=== PATIENT | female | born 1995 | race Hispanic/Latino ===

== ENCOUNTER 2019-07-15 20:36 | Emergency (ER) | payer OTHER ==
[~2019-07-15] VITALS: Ht 170.2 cm; Wt 59.0 kg
--- NOTE | 2019-07-15 22:53 | Diagnostic Imaging Report ---
EXAMINATION: CHEST 2 VIEWS INDICATION: ^CHEST PAIN ^[id number] ^[id number] COMPARISON: None FINDINGS: TUBES and LINES: None. LUNGS: Lungs are well inflated. Slight perihilar, peribronchial thickening and perihilar streaky densities may reflect viral infection versus reactive airway disease. There is no evidence of pneumonia or pulmonary edema. PLEURA: No pleural effusion or pneumothorax. HEART AND MEDIASTINUM: The cardiomediastinal silhouette is unremarkable. BONES AND SOFT TISSUES: No acute osseous lesion. Soft tissues are unremarkable. UPPER ABDOMEN: No free air under the diaphragm. IMPRESSION: Slight perihilar, peribronchial thickening and perihilar streaky densities may reflect viral infection versus reactive airway disease Signed by: Dr. Sarah Degroot M.D. on 07/15/2019 10:50 PM
== END 2019-07-15 23:30 | disposition home or self-care (01) ==
LOC: ER 20:36
DX: R07.9 Chest pain, unspecified (principal)
CPT/HCPCS: 71046; 93005; 99283

== ENCOUNTER 2019-10-23 16:54 | Emergency (ER) | payer SELFPAY ==
[~2019-10-23] VITALS: Ht 172.7 cm; Wt 59.0 kg
[2019-10-23] MEDS ORDERED: IBUPROFEN 600 MG TAB PO STA (17:20)
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
--- NOTE | 2019-10-23 18:26 | Diagnostic Imaging Report ---
SHOULDER 2+VW LT -HOPD - Multiple views HISTORY: pain COMPARISON: None available. FINDINGS: There is a mildly displaced fracture of the lateral clavicular shaft with slight widening of a chronic clavicular joint could represent ligamentous injury. Osseous alignment is within normal limits. There is no evidence of dislocation. Mild soft tissue swelling about the fracture site. IMPRESSION: Mildly displaced fracture of the lateral clavicular shaft with slight widening of a chronic clavicular joint could represent ligamentous injury. Signed by: Beltran Ríos MD on 10/23/2019 6:23 PM
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
--- NOTE | 2019-10-23 20:14 | NUR ---
CALLED [facility]. SPOKE WITH LIAT. SHE WILL CALL BACK WITH NEUROLOGIST FOR MD/MD REPORT.
--- NOTE | 2019-10-23 20:40 | NUR ---
DOC TO DOC WITH DR BENSON ACCEPTING PT
[2019-10-23] MEDS ORDERED: IBUPROFEN 600 MG TAB ONE (22:34)
--- NOTE | 2019-10-23 23:20 | NUR ---
REC'D CALL FROM [facility], ETA WILL BE ANOTHER 1 1/2HRS. PT REQUESTING WE CALL ANOTHER EMS
--- NOTE | 2019-10-23 23:30 | NUR ---
CALLED [facility]. ETA 20MINS.
--- NOTE | 2019-10-23 23:34 | NUR ---
CALLED [facility] AT PT REQUEST. ETA 20MINS
--- NOTE | 2019-10-24 00:03 | NUR ---
REPORT TO [facility].
--- NOTE | 2019-10-24 00:05 | NUR ---
ATTEMPTED TO GIVE REPORT TO HAYDEE STRICKLAND WITHOUT RESULTS. THEY WILL CALL BACK
[2019-10-24 00:08] VITALS: BP 113/70
--- NOTE | 2019-10-24 00:50 | NUR ---
REC'D CALL BACK FROM ZELALEM COY FROM [facility]. REPORT GIVEN
== END 2019-10-24 00:08 | disposition other institution (70) ==
LOC: FSED 16:54
DX: S02.0XXA Fracture of vault of skull, initial encounter for closed fracture (principal); S42.022A Displaced fracture of shaft of left clavicle, initial encounter for closed fracture; S20.219A Contusion of unspecified front wall of thorax, initial encounter; V09.20XA Pedestrian injured in traffic accident involving unspecified motor vehicles, initial encounter; Y93.01 Activity, walking, marching and hiking; Y92.488 Other paved roadways as the place of occurrence of the external cause; Z03.818 Encounter for observation for suspected exposure to other biological agents ruled out
CPT/HCPCS: 70450; 71045; 87635

== ENCOUNTER 2020-01-27 17:53 | Emergency (ER) | payer OTHER ==
[~2020-01-27] VITALS: Ht 172.7 cm; Wt 59.0 kg
--- OUTSIDE RECORDS SUMMARY | 2020-01-27 19:07 | XMS REPORT | Continuity of Care Document ---
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 lesion. Soft tissues are unremarkable. UPPER ABDOMEN: No free air under the diaphragm. IMPRESSION: No acute finding or evidence of traumatic injury. Signed by: Beltran Camp MD on 10/23/2019 5:59 PM Dictated By: BELTRAN CAMP MD 58 Transcribed By: LYNN on 10/23/191758 COPY TO: REBECCA GARCIA MD CHEST 2 [id number] 22:49:00 [place] [address] Patient Name: TAWNYA SINHA MR #: [id number] : 1995 Age/Sex: 23/F Req #: [id number] Adm Physician: Ordered by: KELLEN KYLE MD Report #: [id number] Location: ER Room/Bed: Procedure : [id number] DX/CHEST 2 VIEWS Exam Date: 07/15/19 Sita dodd Time: 2134 REPORT STATUS: Signed EXAMINATION: CHEST 2 VIEWS INDICATION: CHEST PAIN [id number] COMPARISON: None FINDINGS: TUBES and LINES: None. LUNGS: Lungs are well inflated. Slight perihilar, peribronchial thickening and perihilar streaky densities may reflect viral infection versus reactive airway disease. There is no evidence of pneumonia or pulmonary arcadio ma. PLEURA: No pleural effusion or pneumothorax. HEART AND MEDIASTINU M: The cardiomediastinal silhouette is unremarkable. BONES AND SOFT TI SSUES: No acute osseous lesion. Soft tissues are unremarkable. UPPER AB DOMEN: No free air under the diaphragm. IMPRESSION: Slight perihilar , peribronchial thickening and perihilar streaky densities may reflect viral i nfection versus reactive airway disease Signed by: Dr. Sarah cummins M.D. on 07/15/2019 10:50 PM Dictated By: HORACE Ewing onically Signed By: HORACE العلي MD, MD on 07/15/192249 Transcribed By: JAMIE CARDONA on 07/15/192249 COPY TO: KELLEN KYLE MD
--- OUTSIDE RECORDS SUMMARY | 2020-01-27 19:07 | XMS REPORT | Clinical Summary ---
Author Author HAYDEE [facility] Organization [facility] Address Unknown Phone Unavailable Care Team Providers Care Accounts Receivable Analyst Name Role Phone Pcp, No PCP Unavailable Allergies No Known Allergies Medications End Date Status Medication Sig Dispensed Refills Start Date 10/31/2019 acetaminophen-codeine Take 1 tablet 21 tablet 0 (TYLENOL #3) 300-30 mg by mouth 0 per tablet every 4 (four) hours as needed for up to 7 days. Max Daily Amount: 6 tablets Active Problems Problem Noted Date Subdural hematoma 10/24/2019 Encounters Care Team Description Date Type Specialty Xin Lala MD Agrawal, Neeraj, MD Subdural hematoma (HCC); Displaced fracture of lateral end of left clavicle, initial encounter for closed fracture 10/24/2019 Hospital Cardiology Encounter 10/24/2019 Orders Only General Internal Me dicine 10/24/2019 Travel after 01/26/2019 Social History Date Tobacco Use Types Packs/Day Years Used Smoker, Current Status Unknown Smokeless Tobacco: Never Used Sex Assigned at Date Recorded Not on file Industry Job Start Date Occupation Not on file Not on file Not on file Travel End Travel History Travel Start No recent travel history available. Last Filed Vital Signs Time Taken Vital Sign Reading 10/24/2019 7:54 PM CDT Blood Pressure 110/60 10/24/2019 7:54 PM CDT Pulse 74 10/24/2019 7:54 PM CDT Temperature 36.2 C (97.2 F) 10/24/2019 7:54 PM CDT Respiratory Rate 14 10/24/2019 7:54 PM CDT Oxygen Saturation 97% - Inhaled Oxygen - Concentration 10/24/2019 1:13 AM CDT Weight 60.6 kg (133 lb 8 oz) 10/24/2019 1:13 AM CDT Height 170.2 cm (5' 7") 10/24/2019 1:13 AM CDT Body Mass Index 20.91 Plan of Treatment Health Maintenance Due Date Last Done Comments PNEUMOCOCCAL VACCINE 2-64 12/14/2001 YEARS AT RISK (1 of 1 - PPSV23) LIPID PANEL 2015 CERVICAL CANCER SCREENING 12/14/2016 PAP ONLY (Age 21-65) INFLUENZA VACCINE (#1) 2019 Procedures Comments Procedure Name Priority Date/Time Associated Diag nosis CT BRAIN WITHOUT IV Routine 10/24/2019 CONTRAST 5:[address] SPINE CERVICAL WITHOUT STAT 10/24/2019 IV CONTRAST 9:35 AM CDT XR CHEST 1 VIEW STAT 10/24/2019 PORTABLE/BEDSIDE 8:39 AM CDT XR CHEST 1 VIEW Routine 10/24/2019 PORTABLE/BEDSIDE 6:51 AM CDT SCREEN, URINE STAT 10/24/2019 6:39 AM CDT ECG 12-LEAD Routine 10/24/2019 4:55 AM CDT Procedure Note - Interface, External Ris In - 10/24/2019 5:31 AM CDT Ventricula r Rate 71 BPM Atrial Rate 71 BPM P-R Interval 116 ms QRS Duration 86 ms Q-T Interval 388 ms QTC Calculatio n(Bazett) 421 ms P [place] 35 degrees R [place] 60 degrees T [place] 42 degrees Normal sinus rhythm Normal ECG No previous ECGs available ECG 12-LEAD STAT 10/24/2019 4:55 AM CDT CBC W/PLT COUNT & AUTO Routine 10/24/2019 DIFFERENTIAL 2:58 AM CDT TROPONIN I Add-On 10/24/2019 2:58 AM CDT MAGNESIUM Add-On 10/24/2019 2:58 AM CDT APTT STAT 10/24/2019 2:58 AM CDT PROTHROMBIN TIME/INR STAT 10/24/2019 2:58 AM CDT BASIC METABOLIC PANEL (7) Routine 10/24/2019 2:58 AM CDT CBC W/PLT COUNT & AUTO Routine 10/24/2019 DIFFERENTIAL 2:58 AM CDT after 01/26/2019 Results * CT brain without IV contrast (10/24/2019 5:05 PM CDT) Specimen Narrative Performed At FINAL REPORT [facility] CT, BRAIN, WITHOUT CONTRAST INDICATION: Head trauma, minor, normal mental status (Age 19-64y) TECHNIQUE: Noncontrast axial imaging wa s obtained from the vertex to the skull base. Axial images were recon structed using a bone algorithm. DOSE REDUCTION: Dose modulation, iterat kathy reconstruction, and/or weight-based adjustment of the mA/kV wa s utilized to reduce the radiation dose to as low as reasonably achievable. COMPARISON: Outside CT head 10/23/2019 FINDINGS: Intracranial: No intracranial hemorrhag e or abnormal extra-axial collection. No evidence of acute territ orial infarct. No mass effect. No hydrocephalus. Osseous structures: No fracture. No jayda picious lesion. Paranasal sinuses and mastoid air cells : No evidence of sinusitis. Mastoids are clear. Orbital contents: Globes are intact. IMPRESSION: No acute intracranial hemorrhage. If there is persistent clinical concern for intracranial pathology, MR examination is recommended for [facility] er characterization. Signed: Morenita Fernandez MD Report Verified Date/Time: 0 17:34:56 Procedure Note Interface, External Ris In - 10/24/2019 5:[address] PM CD[address] FINAL REPORT CT, BRAIN, WITHOUT CONTRAST INDICATION: [...] is recommended for further characterization. Signed: Morenita Fernandez MD Report Verified Date/Time: 10/24/2019 17:34:56 Performing Organization Address City/State/Zipcode Ph one Number [employer] * CT spine cervical without IV contrast (10/24/2019 9:35 AM CDT) Specimen Narrative Performed At FINAL REPORT [employer] CT Cervical spine CLINICAL HISTORY: Neck trauma, dangerou s injury mechanism (Age < 64y) TECHNIQUE: Contiguous axial images of t he cervical spine with coronal and sagittal reformations to assess the alignment. This exam was performed according to the departmental dose optimization program which includes automated exposure contr ol, adjustment of the mA and/or kV according to the patient size , and/or use of an iterative reconstruction technique. COMPARISON: None FINDINGS: The vertebral body heights are preserve d without fracture or dislocation. There is no prevertebral s oft tissue swelling. There is straightening of the cervical curvature with maintained alignment. Allowing for the lack of intrathecal co ntrast, there is no significant appearing central canal soniya nosis. There are scattered subcentimeter lymph nodes in the neck. The visualized lung apices are clear. IMPRESSION: No cervical fracture or dislocation. Signed: Luciano Nelson MD Report Verified Date/Time: 0 09:59:15 Reading Location: [facility] C013V Neuro Re ading Room Procedure Note Interface, External Ris In - 10/24/2019 10:01 AM CDT FINAL REPORT CT Cervical spine CLINICAL HISTORY: [...] No cervical fracture or dislocation. Signed: Luciano Nelson MD Report Verified Date/Time: 10/24/2019 09:59:15 Reading Location: [facility] C0[facility] Neuro Reading Room Performing Organization Address City/State/Zipcode Ph one Number [facility] * XR chest 1 view portable / bedside (10/24/2019 8:39 AM CDT) Only the most recent of 2 results within the time period is included. Specimen Narrative Performed At FINAL REPORT [facility] INDICATION: L distal clavicle fracture COMPARISON: None TECHNIQUE: Single frontal view of the c hest. FINDINGS: Lungs and pleura: Clear lungs. No effus ion. Heart and mediastinum: Normal heart siz e. Unremarkable mediastinal contours. Osseous structures: Fracture of the dis samuel one third of the left clavicle, not included within the prior radiograph earlier today. Distal clavicular fragment appears with in normal distance of the acromion. Other: None. IMPRESSION: Lungs are clear. Clavicle views would be better for eval uating the left clavicle. Signed: Breann Durant MD Report Verified Date/Time: 0 08:57:55 Reading Location: [facility] Reading Room Procedure Note Interface, External Ris In - 10/24/2019 9:00 AM CDT FINAL REPORT INDICATION: L distal clavicle fracture COMPARISON: None TECHNIQUE: Single frontal view of the chest. FINDINGS: Lungs and pleura: Clear lungs. No effusion. Heart and mediastinum: Normal heart size. Unremarkable mediastinal contours. Osseous structures: Fracture of the distal one third of the left clavicle, not included within the prior radiograph earlier today. Distal clavicular fragment appears within normal distance of the acromion. Other: None. IMPRESSION: Lungs are clear. Clavicle views would be better for evaluating the left clavicle. Signed: Breann Durant MD Report Verified Date/Time: 10/24/2019 08:57:55 Reading Location: [facility] Radiology Reading Room Performing Organization Address City/[facility] Ph one Number [facility] * Screen, urine (10/24/2019 6:39 AM CDT) Preg Test, Ur Negative [facility] Specimen Urine Performing Organization Address [facility] Ph one Number [place] [id number] [facility] * ECG 12 lead (10/24/2019 4:55 AM CDT) Specimen Narrative Performed At Ventricular Rate 71 BPM [facility] Atrial Rate 71 BPM P-R Interval 116 ms QRS Duration 86 ms Q-T Interval 388 ms QTC Calculation(Bazett) 421 ms P [place] 35 degrees R [place] 60 degrees T [place] 42 degrees Normal sinus rhythm Normal ECG No previous ECGs available Confirmed by Maya OLIVERA MICHAEL (1 [phone]) on 10/25/2019 7:12:01 AM Procedure Note Interface, External Ris In - 10/25/2019 7:12 AM CDT Ventricular Rate 71 BPM Atrial Rate 71 BPM P-R Interval 116 ms QRS Duration 86 ms Q-T Interval 388 ms QTC Calculation(Bazett) 421 ms P [place] 35 degrees R [place] 60 degrees T [place] 42 degrees Normal sinus rhythm Normal ECG No previous ECGs available Confirmed by Maya OLIVERA MICHAEL ([id number]) on 10/25/2019 7:12:01 AM Performing Organization Address [facility] Ph one Number [facility] * CBC with platelet count + automated diff (10/24/2019 2:58 AM CDT) WBC 7.2 3.5 - 10.5 K/L [facility] RBC 3.78 (L) 3.93 - 5.22 M/L [facility] Hemoglobin 11.8 11.2 - 15.7 GM/DL [facility] Hematocrit 35.5 34.1 - 44.9 % [facility] MCV 93.9 79.4 - 94.8 fL [facility] MCH 31.2 25.6 - 32.2 pg [facility] MCHC 33.2 32.2 - 35.5 GM/DL [facility] RDW 12.3 11.7 - 14.4 % [facility] Platelets 209 150 - 450 K/CU MM [facility] MPV 11.0 9.4 - 12.3 fL [facility] nRBC 0 0 - 0 /100 WBC [facility] % Neutros 60 % [facility] % Lymphs 30 % [facility] % Monos 6 % [facility] % Eos 2 % [facility] % Baso 0 % [facility] # Neutros 4.38 1.56 - 6.13 K/L [facility] # Lymphs 2.18 1.18 - 3.74 K/L [facility] # Monos 0.46 (H) 0.24 - 0.36 K/L [facility] # Eos 0.17 0.04 - 0.36 K/L [facility] # Baso 0.02 0.01 - 0.08 K/L [facility] Immature 0 0 - 1 % [facility] Granulocytes-Relative [facility] Specimen Blood Performing Organization Address [facility] one Number [address] [facility] * Troponin I (10/24/2019 2:58 AM CDT) Troponin I <0.01 0.00 - 0.03 ng/mL [facility] Specimen Blood Narrative Performed At Troponin I (TnI) levels must be interpreted in the co ntext of the presenting [facility] symptoms and the clinical findings. Elevated TnI leve ls indicate myocardial [facility] damage, but are not specific for ischem ic heart disease. Elevated TnI levels are seen in patients with other cardiac con ditions (including myocarditis and congestive heart failure), and slight T nI elevations occur in patients with other conditions, including sepsis, [place] al failure, acidosis, acute neurological disease, and persistent tachyarrhythmia . Shale Planer Operator Helper ID - VIMAL Hart Performing Organization Address [facility] one Number [address] [facility] * aPTT (10/24/2019 2:58 AM CDT) PTT 31.4 22.5 - 36.0 seconds [facility] Specimen Blood Performing Organization Address [facility] one Number [address] [facility] * Prothrombin time/INR (10/24/2019 2:58 AM CDT) Protime 14.3 (H) 11.9 - 14.2 seconds [facility] INR 1.1 <=5.9 [facility] Specimen Blood Narrative Performed At Effective 09/26/2018: PT Reference Range Change [facility] New: 11.9-14.2Previous: 11.7-14.7 [facility] MEDICAL CE NTER RECOMMENDED COUMADIN/WARFARIN INR THERA PY RANGES STANDARD DOSE: 2.0-3.0Includes: PRO PHYLAXIS for venous thrombosis, systemic embolization; TREATMENT for venous thro mbosis and/or pulmonary embolus. HIGH RISK: Target INR is 2.5-3.5 for pa tients wiht mechanical heart valves. Performing Organization Address [facility] one Number [address] [facility] * Magnesium (10/24/2019 2:58 AM CDT) Magnesium 1.8 1.6 - 2.6 mg/dL [facility] Specimen Blood Narrative Performed At Shale Planer Operator Helper ID - VIMAL Hart [facility] Performing Organization Address [facility] one Number [address] [facility] * Basic metabolic panel (10/24/2019 2:58 AM CDT) Sodium 137 136 - 145 meq/L [facility] Potassium 3.2 (L) 3.5 - 5.1 meq/L [facility] Chloride 105 98 - 107 meq/L [facility] CO2 26 22 - 29 meq/L [facility] BUN 7 7 - 21 mg/dL [facility] Creatinine 0.70 0.57 - 1.25 mg/dL [facility] Glucose 86 70 - 105 mg/dL [facility] Calcium 8.8 8.4 - 10.2 mg/dL [facility] EGFR 104Comment: ESTIMATED GFR IS mL/min/1.[address] [facility] NOT ACCURATE CREATININE [facility] CLEARANCE IN PREDICTING GLOMERULAR FILTRATION RATE. ESTIMATED GFR IS NOT APPLICABLE FOR DIALYSIS PATIENTS. Specimen Blood Narrative Performed At Shale Planer Operator Helper ID - HANNAH Carrasco [facility] Performing Organization Address City/State/Zipcode Ph one Number [facility] [address] [place], [place] [address] [facility]ENTER after 01/26/2019 Insurance Payer Benefit Subscriber ID Type Phone Address Plan / Group [employer] - [employer] CARE [employer] HMO xxxxxxxxx HMO/POS POS QPOS [id number] Advance Directives For more information, please contact: [address] [address] Date Inactivated Comments Code Status Date Activated 10/25/2019 1:03 AM Full Code 10/24/2019 1:32 AM This code status was determined by: Patient
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
[2020-01-27 20:07] VITALS: BP 104/68
[2020-01-27] MEDS ORDERED: KETOROLAC TROMETHAMINE 60 MG/2 ML VIAL IM ONE (20:15)
[2020-01-27] MEDS ORDERED: ORPHENADRINE CITRATE 30 MG/ML VIAL IM ONE (20:15)
[2020-01-27] MEDS ORDERED: KETOROLAC TROMETHAMINE 60 MG/2 ML VIAL ONE (20:24)
[2020-01-27] MEDS ORDERED: ORPHENADRINE CITRATE 30 MG/ML VIAL ONE (20:24)
== END 2020-01-27 20:48 | disposition home or self-care (01) ==
LOC: ER 19:05
DX: S29.012A Strain of muscle and tendon of back wall of thorax, initial encounter (principal); S46.912A Strain of unspecified muscle, fascia and tendon at shoulder and upper arm level, left arm, initial encounter; X50.0XXA Overexertion from strenuous movement or load, initial encounter
CPT/HCPCS: 99282; J1885; J2360